=== PATIENT | female | born 1960 | race Caucasian/White ===

== ENCOUNTER 2018-08-23 18:49 | Emergency (ER) | payer BC, SELFPAY ==
[2018-08-23 19:10] VITALS: BP 148/92; PULSE 103; RESP 18; TEMP 37; O2SAT 94
--- NOTE | 2018-08-23 19:41 | DI.RAD_ITS ---
SYMPTOM/DIAGNOSIS: COUGH, FEVER PA AND LATERAL CHEST: There are no prior comparison exams. The cardiac and mediastinal contours have a normal appearance. The lungs are clear. No infiltrate or effusion is seen. IMPRESSION: Negative chest x-ray.
--- NOTE | 2018-08-23 19:44 | ED.GENADUL_ITS ---
Discharge Plan Disposition Patient Disposition: HOME Discharge Details Chief Complaint: RespSymp Clinical Impression: Pneumonia Primary Care Provider: Rosette,Local ED Provider: Saulo Costa Home Meds and New Rx's Prescriptions: New levofloxacin [Levaquin] 750 mg tablet 750 mg PO DAILY Qty: 4 RF: 0 Continued metformin 500 mg Tablet 500 mg PO BID RF: 0 amlodipine [Norvasc] 5 mg Tablet 5 mg PO DAILY AM RF: 0 aspirin [Aspir-81] 81 mg Tablet,Delayed Release (Dr/Ec) 81 mg PO HS RF: 0 simvastatin 20 mg Tablet 20 mg PO QHS RF: 0 divalproex [Depakote ER] 500 mg Tablet Extended Release 24 Hr 500 mg PO BID RF: 0 hydrochlorothiazide 12.5 mg Capsule 12.5 mg PO DAILY RF: 0 glipizide 5 mg Tablet 5 mg PO DAILY RF: 0 gabapentin 300 mg Capsule 300 mg PO HS RF: 0 Discharge Instructions Instructions: Pneumonia (ED) Additional Instructions: Please drink plenty of fluids and allow for plenty of rest. Take antibiotic as prescribed. The next dose is tomorrow night. Please contact your primary care physician to arrange follow-up. Return to the ER for any worsening or new concerning symptoms. 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 Rales RLL. Pulse ox 94%. No resp distress. Concern for PNA. Will obtain chest radiograph. Oral fluid rehydration. Will reassess. 21:04 --chest x-ray interpreted by radiology: Minimal central interstitial thickening suggest bronchitis. No airspace consolidation. Concern for clinical PNA. 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 Patient was reassessed and noted to have improved heart rate 96bpm. Disposition decision was made weighing the risks and benefits of hospitalization versus outpatient treatment, the risk for further decompensation, and the patient's wishes. The patient was stable and requested discharge. Prior to discharge, my usual and customary return precautions were reviewed with the patient - this included follow-up instructions and reason to return to the emergency department if condition worsens, does not improve as expected, or other new concerns arise. Patient plans to follow-up with her doctor at home next week - she does not have a local pcp and advised return to ED as needed. HPI General Mode of arrival: ambulatory . Date/Time Provider Initiated Documentation: 08/23/18 19:27 . Limitations to Documentation: no limitations . Information obtained by: patient . HPI Narrative: 58-year-old female with history of [id number] diabetes and hypertension, presents with chief complaint of cough. Patient notes she has had cough and congestion for the past 5 days. Symptoms have persisted and worsened. No associated chest pain. She has had some shortness of breath. Patient notes she has been under a lot of stress recently. Patient works at a alf. She is a smoker trying to quit. Related Data Home Medications Medication Instructions Recorded Confirmed amlodipine [Norvasc] 5 mg PO DAILY AM 08/23/18 08/23/18 aspirin [Aspir-81] 81 mg PO HS 08/23/18 08/23/18 divalproex [Depakote ER] 500 mg PO BID 08/23/18 08/23/18 gabapentin 300 mg PO HS 08/23/18 08/23/18 glipizide 5 mg PO DAILY 08/23/18 08/23/18 hydrochlorothiazide 12.5 mg PO DAILY 08/23/18 08/23/18 levofloxacin [Levaquin] 750 mg PO DAILY #4 tab 08/23/18 metformin 500 mg PO BID 08/23/18 08/23/18 simvastatin 20 mg PO QHS 08/23/18 08/23/18 Previous Rx's Medication Instructions Recorded levofloxacin [Levaquin] 750 mg PO DAILY #4 tab 08/23/18 Allergies Allergy/AdvReac Type Severity Reaction Status Date / Time morphine AdvReac Intermediate Other (See Unverified 08/23/18 19:14 Comment) General Stated Complaint: RespSymp YARITZA: 3 Review of Systems Review of Systems All systems reviewed & are unremarkable except as noted in HPI and below Constitutional Reports fever(s) Cardiovascular Denies chest pain Respiratory Reports cough PFSH Medical History Diabetes (Chronic) HTN (hypertension) (Chronic) Social History Smoking/Tobacco Use Status: Current every day Exam Const General: cooperative and no acute distress HENMT Head: normocephalic and atraumatic Mouth: moist mucous membranes Eyes Conjunctivae: normal conjunctivae Sclera: normal sclerae Neck Neck: trachea midline Resp Effort & Inspection: normal respiratory effort, able to speak in complete sentences, cough and not labored Auscultation: rales on the right in the lower lung renee, no rhonchi and no wheezes Cardio Jugular venous pressure: no JVD Rate: regular rate and not tachycardic Rhythm: regular rhythm GI Palpation: soft, not firm, no guarding, no masses, not rigid and nontender Skin General skin exam: no rashes or lesions noted Neuro General: alert, awake, oriented x3 and tone normal Extrem General: no edema Psych Appearance: grossly normal Mental Status: mental status grossly normal Speech and Movement: speech and movement normal Course Vital Signs Temperature 37.0 C 08/23/18 19:10 Pulse 103 H 08/23/18 19:10 Respiratory Rate 18 08/23/18 19:10 Blood Pressure 148/92 H 08/23/18 19:10 Pulse Oximetry 94 L 08/23/18 19:10 Temperature 37.0 C 08/23/18 19:10 Temperature Source Skin 08/23/18 19:10 Pulse 103 H 08/23/18 19:10 Respiratory Rate 18 08/23/18 19:10 Respiratory Effort 08/23/18 19:24 Blood Pressure 148/92 H 08/23/18 19:10 Pulse Oximetry 94 L 08/23/18 19:10 Oxygen Delivery Method Room Air 08/23/18 19:10 Oxygen Flow Rate 0 08/23/18 19:10 Pain Level 4 08/23/18 19:10
--- NOTE | 2018-08-23 20:36 | DI.VRAD_ITS ---
EXAM: XR Chest, 2 Views EXAM DATE/TIME: 08/23/2018 7:42 PM CLINICAL HISTORY: 58 years old, female; Signs and symptoms; Cough and fever; Patient HX: Cough, fever; Per PT: Cough became worse over weekend TECHNIQUE: XR of the chest, 2 views. COMPARISON: No relevant prior studies available. FINDINGS: Lungs: No airspace consolidation. Minimal central interstitial thickening. Pleural space: No pleural effusion. No pneumothorax. Heart/Mediastinum: Cardiac silhouette is upper limits of normal, no liza cheatham megaly. Upper abdomen: Right upper quadrant clips, probable cholecystectomy. Bones/joints: No acute fracture. IMPRESSION: Minimal central interstitial thickening suggests bronchitis. Dictated and Authenticated by: Praveena Hardy MD. Ordering:ZION Vernon MD
== END 2018-08-23 21:34 | disposition home or self-care (01) ==
PROVIDERS: Emergency Provider Student in an Organized Health Care Education/Training Program
DX: J18.9 Pneumonia, unspecified organism (principal); F17.210 Nicotine dependence, cigarettes, uncomplicated; E11.9 Type 2 diabetes mellitus without complications; Z79.84 Long term (current) use of oral hypoglycemic drugs; I10 Essential (primary) hypertension
CPT/HCPCS: 99283; 71046

== ENCOUNTER 2018-09-06 12:25 | Outpatient (REF) | payer BC, SELFPAY ==
[2018-09-06 14:08] LABS: Hemoglobin A1C 7.1 % (4.5-6.2); VALPROIC ACID 61.7 ug/mL (50-100)
[2018-09-06 14:11] LABS: ALT 33 U/L (12-78); AST 31 U/L (15-37); Albumin 3.2 g/dL (3.4-5.0); Alkaline Phosphatase 59 U/L (46-116); Anion Gap 11.4 mmol/L (3-11); BUN 12 mg/dL (7-18); Bilirubin, Total 0.3 mg/dL (0.2-1.0); CO2 27.6 mmol/L (21.0-32.0); CREATININE 0.91 mg/dL (0.55-1.02); Calcium 9.2 mg/dL (8.5-10.1); Chloride 104 mmol/L (98-107); Cholesterol 142 mg/dL (50-200); Glucose 132 mg/dL (70-100); HDL Cholesterol 36 mg/dL (40-60); LDL CHOLESTEROL 76 mg/dL (<100); Sodium 143 mmol/L (136-145); Total Protein 6.8 g/dL (6.4-8.2); Triglyceride 191 mg/dL (30-150)
[2018-09-06 14:30] LABS: Vitamin D 25 Total 33.6 ng/ml (30-100)
== END 2018-09-06 12:45 ==
LOC: LBN 12:25
PROVIDERS: Visit Provider Family Medicine
DX: E78.5 Hyperlipidemia, unspecified (principal); E55.9 Vitamin D deficiency, unspecified; E11.9 Type 2 diabetes mellitus without complications; Z79.899 Other long term (current) drug therapy; Z51.81 Encounter for therapeutic drug level monitoring
CPT/HCPCS: 80053; 80061; 82306; 83721; 80164; 83036

== ENCOUNTER 2018-12-24 10:15 | Outpatient (REF) | payer BC, SELFPAY ==
[2018-12-24 11:30] LABS: HCT 45.7 % (36.0-46.0); HGB 15.7 g/dL (12.0-15.5); Mean Corp. HGB Concentration 34.4 g/dL (32.0-36.0); Mean Corpuscular Hemoglobin 32.4 pg (27.0-33.0); Mean Corpuscular Volume 94.4 fL (80-95); Mean Platelet Volume 11.6 fL (8.0-11.0); Platelet Count 257 x1000/uL (130-400); RBC 4.84 m/cumm (4.00-5.20); RBC Distribution Width 13.2 % (11.7-14.6); White Blood Cell Count 7.66 k/cumm (4.4-10.8)
[2018-12-24 11:48] LABS: VALPROIC ACID 46.6 ug/mL (50-100)
[2018-12-24 11:49] LABS: ALT 55 U/L (12-78); AST 35 U/L (15-37); Albumin 3.8 g/dL (3.4-5.0); Alkaline Phosphatase 70 U/L (46-116); Anion Gap 12.4 mmol/L (3-11); BUN 17 mg/dL (7-18); Bilirubin, Total 0.3 mg/dL (0.2-1.0); CO2 28.6 mmol/L (21.0-32.0); CREATININE 0.79 mg/dL (0.55-1.02); Calcium 9.1 mg/dL (8.5-10.1); Chloride 99 mmol/L (98-107); Cholesterol 188 mg/dL (50-200); Glucose 132 mg/dL (70-100); HDL Cholesterol 39 mg/dL (40-60); Hemoglobin A1C 6.8 % (4.5-6.2); LDL CHOLESTEROL 115 mg/dL (<100); Potassium 3.7 mmol/L (3.5-5.1); Sodium 140 mmol/L (136-145); Total Protein 7.1 g/dL (6.4-8.2); Triglyceride 144 mg/dL (30-150)
[2018-12-24 12:39] LABS: COMMENT (LAB VIEW ONLY) 133.52 mg/dL; Microalb ug/mg Crea 6.7 ug/mg Cr
[2018-12-27 08:24] LABS: Vitamin D 25 Total 51.6 ng/ml (30-100)
== END 2018-12-24 10:35 ==
LOC: LBN 10:15
PROVIDERS: Visit Provider Family Medicine
DX: E11.9 Type 2 diabetes mellitus without complications (principal); E78.5 Hyperlipidemia, unspecified; E55.9 Vitamin D deficiency, unspecified; F33.42 Major depressive disorder, recurrent, in full remission; Z51.81 Encounter for therapeutic drug level monitoring; Z79.899 Other long term (current) drug therapy
CPT/HCPCS: 80053; 80061; 82306; 83721; 85027; 80164; 82043; 82570; 83036